=== PATIENT | male | born 1960 | race Caucasian/White ===

== ENCOUNTER 2017-07-18 06:21 | Day surgery (SDC) | payer OTHER ==
[2017-07-18] MEDS ORDERED: PROPOFOL 40 ML (08:27)
== END 2017-07-18 09:20 | disposition home or self-care (01) ==
LOC: GIL 06:21
DX: Z12.11 Encounter for screening for malignant neoplasm of colon (principal); K63.5 Polyp of colon; K57.30 Diverticulosis of large intestine without perforation or abscess without bleeding; K64.8 Other hemorrhoids; I10 Essential (primary) hypertension; E78.5 Hyperlipidemia, unspecified; J45.909 Unspecified asthma, uncomplicated
CPT/HCPCS: 45380; 88305